=== PATIENT | male | born 1960 | race Two or more races ===

== ENCOUNTER 2021-02-02 18:26 | Inpatient (IN) | payer MEDICARE ==
[~2021-02-02] VITALS: Ht 175.3 cm; Wt 65.3 kg
[~2021-02-02 18:26] MED LIST: DIAZ5TAB MT; GABA800T97 MT
[2021-02-02 19:45] VITALS: BP 145/91
[2021-02-02 20:00] VITALS: BP 145/91
[2021-02-02] MEDS ORDERED: ONDANSETRON HCL 4MG/2ML INJ IV PRN (20:00)
[2021-02-02] MEDS ORDERED: MORPHINE SULFATE 2 MG/ML CPJ (NOT FOR IM USE) IV PRN (20:00)
[2021-02-02] MEDS ORDERED: CLONIDINE 0.1MG TABLET PO PRN (20:00)
[2021-02-02] MEDS ORDERED: DEXTROSE 50% WATER 50ML SYRINGE IV PRN (20:00)
[2021-02-02] MEDS: BLOOD SUGAR DIAGNOSTIC STRIP TEST SCH (21:00)
[2021-02-02] MEDS: INSULIN LISPRO 100 UNITS/ML SUBCUT SCH (21:00)
[2021-02-02] MEDS: AMLODIPINE 5MG TABLET PO SCH (21:00)
[2021-02-02] MEDS ORDERED: LACTULOSE 20G/30ML UDC PO SCH (21:00)
[2021-02-03] MEDS: PANTOPRAZOLE 40MG DR TABLET PO SCH ×2 (05:47→08:45)
[2021-02-03] MEDS: BLOOD SUGAR DIAGNOSTIC STRIP TEST SCH ×4 (05:48→21:00)
[2021-02-03] MEDS: INSULIN LISPRO 100 UNITS/ML SUBCUT SCH ×4 (06:14→21:00)
[2021-02-03 06:45] LABS: BASOPHILS % 0.3 % (0.0-2.0); EOSINOPHILS % 2.8 % (0.0-5.0); HEMOGLOBIN. 12.2 g/dL (14.0-18.0); LYMPHOCYTES % 28.9 % (20.0-50.0); MEAN CORPUSCULAR HEMOGLOBIN 27.5 pg (28.0-32.0); MEAN CORPUSCULAR VOLUME 83.6 fL (80.0-94.0); MEAN PLATELET VOLUME 9.3 fl (7.4-10.4); MONOCYTES % 14.5 % (2.0-8.0); NEUTROPHILS % 53.5 % (40.0-76.0); PLATELET 370 x1000/uL (130-400); RED BLOOD CELL COUNT 4.43 mill/uL (4.7-6.1); RED CELL DISTRIBUTION WIDTH 17.3 % (11.6-14.6)
[2021-02-03 06:51] LABS: CHLORIDE 106 mEq/L (98-107)
[2021-02-03 08:00] VITALS: BP 123/74
[2021-02-03] MEDS: FERROUS SULFATE 325MG TABLET PO SCH ×3 (08:45→17:05)
[2021-02-03] MEDS: AMLODIPINE 5MG TABLET PO SCH ×2 (08:46→22:01)
[2021-02-03] MEDS: ASCORBIC ACID 500 MG TABLET PO SCH (08:46)
[2021-02-03] MEDS: ACETAMINOPHEN 325MG TABLET PO PRN (08:46)
[2021-02-03] MEDS: POTASSIUM CHLORIDE 20MEQ TABLET SR PO SCH ×3 (08:46→19:36)
[2021-02-03] MEDS: CYANOCOBALAMIN 1000MCG/ML VIAL IM SCH (08:47)
[2021-02-03] MEDS ORDERED: HYDROCODONE/ACETAMINOPHEN 5/325MG TABLET PO PRN (10:15)
[2021-02-03] MEDS ORDERED: POTASSIUM CHLORIDE 20MEQ TABLET SR PO NR (17:00)
[2021-02-03 20:00] VITALS: BP 148/88
[2021-02-04 06:27] LABS: BASOPHILS % 0.3 % (0.0-2.0); EOSINOPHILS % 4.2 % (0.0-5.0); LYMPHOCYTES % 21.4 % (20.0-50.0); MEAN CORPUSCULAR HEMOGLOBIN 27.7 pg (28.0-32.0); MEAN CORPUSCULAR VOLUME 83.4 fL (80.0-94.0); MEAN PLATELET VOLUME 9.1 fl (7.4-10.4); MONOCYTES % 14.7 % (2.0-8.0); NEUTROPHILS % 59.4 % (40.0-76.0); PLATELET 413 x1000/uL (130-400); RED BLOOD CELL COUNT 4.68 mill/uL (4.7-6.1); RED CELL DISTRIBUTION WIDTH 17.6 % (11.6-14.6)
[2021-02-04 07:43] LABS: CHLORIDE 103 mEq/L (98-107)
[2021-02-04 07:47] VITALS: BP 146/87
[2021-02-04] MEDS: BLOOD SUGAR DIAGNOSTIC STRIP TEST SCH ×4 (09:00→21:07)
[2021-02-04] MEDS: INSULIN LISPRO 100 UNITS/ML SUBCUT SCH ×4 (09:00→21:40)
[2021-02-04] MEDS: ACETAMINOPHEN 325MG TABLET PO PRN ×4 (09:23→12:56)
[2021-02-04] MEDS: POTASSIUM CHLORIDE 20MEQ TABLET SR PO SCH ×2 (09:23→17:02)
[2021-02-04] MEDS: FERROUS SULFATE 325MG TABLET PO SCH ×3 (09:24→17:01)
[2021-02-04] MEDS: CYANOCOBALAMIN 1000MCG/ML VIAL IM SCH (09:24)
[2021-02-04] MEDS: AMLODIPINE 5MG TABLET PO SCH ×2 (09:24→21:04)
[2021-02-04] MEDS: ASCORBIC ACID 500 MG TABLET PO SCH (09:24)
[2021-02-04] MEDS: LEVOFLOXACIN 500MG TABLET PO SCH (12:19)
[2021-02-04] MEDS: ERGOCALCIFEROL 50000UNITS CAPSULE PO SCH (17:07)
[2021-02-04 18:03] LABS: CLARITY URINE CLEAR (CLEAR); COLOR URINE YELLOW (YELLOW); KETONES URINE NEGATIVE (NEGATIVE); LEUKOCYTE ESTERASE URINE NEGATIVE (NEGATIVE); NITRITE URINE NEGATIVE (NEGATIVE); OCCULT BLOOD URINE NEGATIVE (NEGATIVE); PH URINE 7.5 (4.5-8.0); PROTEIN URINE NEGATIVE (NEGATIVE); SPECIFIC GRAVITY URINE 1.016 (1.005-1.030); UROBILINOGEN URINE 0.2 E.U./dL (0.2-1.0)
[2021-02-04 20:00] VITALS: BP 128/80
[2021-02-04] MEDS: GUAIFENESIN 600MG ER TABLET PO SCH (21:04)
[2021-02-05] MEDS: BLOOD SUGAR DIAGNOSTIC STRIP TEST SCH ×4 (05:47→21:00)
[2021-02-05 06:24] LABS: CHLORIDE 105 mEq/L (98-107)
[2021-02-05 06:50] LABS: HEMATOCRIT. 39.6 % (42.0-52.0); HEMOGLOBIN. 13.4 g/dL (14.0-18.0); MEAN CORPUSCULAR HEMOGLOBIN 28.2 pg (28.0-32.0); MEAN CORPUSCULAR VOLUME 83.3 fL (80.0-94.0); MEAN PLATELET VOLUME 9.1 fl (7.4-10.4); PLATELET 423 x1000/uL (130-400); RED BLOOD CELL COUNT 4.75 mill/uL (4.7-6.1); RED CELL DISTRIBUTION WIDTH 17.5 % (11.6-14.6)
[2021-02-05 07:23] VITALS: BP 116/86
[2021-02-05] MEDS: INSULIN LISPRO 100 UNITS/ML SUBCUT SCH ×4 (07:27→21:00)
[2021-02-05] MEDS: FERROUS SULFATE 325MG TABLET PO SCH ×3 (08:45→16:26)
[2021-02-05] MEDS: ASCORBIC ACID 500 MG TABLET PO SCH (08:45)
[2021-02-05] MEDS: AMLODIPINE 5MG TABLET PO SCH ×2 (08:45→22:12)
[2021-02-05] MEDS: GUAIFENESIN 600MG ER TABLET PO SCH ×2 (08:46→22:11)
[2021-02-05] MEDS: FAMOTIDINE 20MG TABLET PO SCH ×2 (08:46→22:11)
[2021-02-05] MEDS: POTASSIUM CHLORIDE 20MEQ TABLET SR PO SCH ×2 (08:47→16:27)
[2021-02-05] MEDS: HYDROCODONE/ACETAMINOPHEN 10/325MG TABLET PO PRN ×2 (10:00→22:40)
[2021-02-05] MEDS: LEVOFLOXACIN 500MG TABLET PO SCH (10:00)
[2021-02-05 17:34] LABS: PLATELET ESTIMATE INCREASED
[2021-02-05 20:00] VITALS: BP 137/86
[2021-02-06] MEDS: BLOOD SUGAR DIAGNOSTIC STRIP TEST SCH ×4 (06:39→21:27)
[2021-02-06 08:24] VITALS: BP 102/78
[2021-02-06] MEDS: AMLODIPINE 5MG TABLET PO SCH ×2 (08:53→21:27)
[2021-02-06] MEDS: INSULIN LISPRO 100 UNITS/ML SUBCUT SCH ×4 (08:54→21:32)
[2021-02-06] MEDS: FAMOTIDINE 20MG TABLET PO SCH ×2 (09:22→21:22)
[2021-02-06] MEDS: ASCORBIC ACID 500 MG TABLET PO SCH (09:22)
[2021-02-06] MEDS: GUAIFENESIN 600MG ER TABLET PO SCH ×2 (09:22→21:22)
[2021-02-06] MEDS: POTASSIUM CHLORIDE 20MEQ TABLET SR PO SCH ×2 (09:22→17:11)
[2021-02-06] MEDS: FERROUS SULFATE 325MG TABLET PO SCH ×3 (09:22→17:11)
[2021-02-06] MEDS: HYDROCODONE/ACETAMINOPHEN 10/325MG TABLET PO PRN ×3 (09:26→18:25)
[2021-02-06 20:00] VITALS: BP 132/92
[2021-02-07] MEDS: HYDROCODONE/ACETAMINOPHEN 10/325MG TABLET PO PRN ×2 (06:20→13:20)
[2021-02-07] MEDS: BLOOD SUGAR DIAGNOSTIC STRIP TEST SCH ×4 (06:20→20:58)
[2021-02-07 06:29] LABS: HEMATOCRIT. 40.2 % (42.0-52.0); HEMOGLOBIN. 13.4 g/dL (14.0-18.0); MEAN CORPUSCULAR VOLUME 83.8 fL (80.0-94.0); MEAN PLATELET VOLUME 8.7 fl (7.4-10.4); PLATELET 408 x1000/uL (130-400); RED CELL DISTRIBUTION WIDTH 17.7 % (11.6-14.6)
[2021-02-07 06:33] LABS: CHLORIDE 103 mEq/L (98-107)
[2021-02-07 08:27] VITALS: BP 105/70
[2021-02-07] MEDS: FERROUS SULFATE 325MG TABLET PO SCH ×3 (08:27→16:57)
[2021-02-07] MEDS: GUAIFENESIN 600MG ER TABLET PO SCH ×2 (08:27→20:58)
[2021-02-07] MEDS: ASCORBIC ACID 500 MG TABLET PO SCH (08:27)
[2021-02-07] MEDS: POTASSIUM CHLORIDE 20MEQ TABLET SR PO SCH ×2 (08:27→16:57)
[2021-02-07] MEDS: FAMOTIDINE 20MG TABLET PO SCH ×2 (08:27→20:58)
[2021-02-07] MEDS: AMLODIPINE 5MG TABLET PO SCH ×2 (08:28→20:58)
[2021-02-07] MEDS: INSULIN LISPRO 100 UNITS/ML SUBCUT SCH ×4 (08:29→20:58)
[2021-02-07 16:22] LABS: PLATELET ESTIMATE INCREASED
[2021-02-07 20:00] VITALS: BP 117/72
[2021-02-08] MEDS: HYDROCODONE/ACETAMINOPHEN 10/325MG TABLET PO PRN ×2 (06:24→12:20)
[2021-02-08] MEDS: BLOOD SUGAR DIAGNOSTIC STRIP TEST SCH ×4 (06:24→21:14)
[2021-02-08] MEDS: INSULIN LISPRO 100 UNITS/ML SUBCUT SCH ×4 (06:25→21:00)
[2021-02-08 08:01] VITALS: BP 111/76
[2021-02-08] MEDS: AMLODIPINE 5MG TABLET PO SCH ×2 (09:16→21:14)
[2021-02-08] MEDS: GUAIFENESIN 600MG ER TABLET PO SCH ×2 (09:16→21:14)
[2021-02-08] MEDS: FAMOTIDINE 20MG TABLET PO SCH ×2 (09:16→21:14)
[2021-02-08] MEDS: ASCORBIC ACID 500 MG TABLET PO SCH (09:16)
[2021-02-08] MEDS: FERROUS SULFATE 325MG TABLET PO SCH ×3 (09:16→16:58)
[2021-02-08 19:06] LABS: 25-HYDROXY VITAMIN D3 34 ng/mL (.)
[2021-02-08 20:00] VITALS: BP 124/82
[2021-02-09 06:22] LABS: CHLORIDE 102 mEq/L (98-107)
[2021-02-09] MEDS: BLOOD SUGAR DIAGNOSTIC STRIP TEST SCH (07:16)
[2021-02-09] MEDS: INSULIN LISPRO 100 UNITS/ML SUBCUT SCH (07:16)
[2021-02-09 07:44] VITALS: BP 118/86
[2021-02-09] MEDS: GUAIFENESIN 600MG ER TABLET PO SCH ×2 (08:41→21:30)
[2021-02-09] MEDS: HYDROCODONE/ACETAMINOPHEN 10/325MG TABLET PO PRN (08:42)
[2021-02-09] MEDS: AMLODIPINE 5MG TABLET PO SCH ×2 (08:42→21:30)
[2021-02-09] MEDS: ASCORBIC ACID 500 MG TABLET PO SCH (08:42)
[2021-02-09] MEDS: FERROUS SULFATE 325MG TABLET PO SCH ×3 (08:42→16:27)
[2021-02-09] MEDS: FAMOTIDINE 20MG TABLET PO SCH ×2 (08:42→21:31)
[2021-02-09] MEDS ORDERED: ERGOCALCIFEROL 50000UNITS CAPSULE PO SCH (09:00)
[2021-02-09] MEDS ORDERED: HYDROCODONE/ACETAMINOPHEN 10/325MG TABLET PO PRN (09:45)
[2021-02-09 20:00] VITALS: BP 133/86
[2021-02-09] MEDS: ACETAMINOPHEN 325MG TABLET PO PRN (21:30)
[2021-02-10 07:11] VITALS: BP 122/73
[2021-02-10] MEDS: FAMOTIDINE 20MG TABLET PO SCH ×2 (08:13→21:43)
[2021-02-10] MEDS: FERROUS SULFATE 325MG TABLET PO SCH ×3 (08:13→16:54)
[2021-02-10] MEDS: AMLODIPINE 5MG TABLET PO SCH ×2 (08:13→21:43)
[2021-02-10] MEDS: GUAIFENESIN 600MG ER TABLET PO SCH ×2 (08:13→21:42)
[2021-02-10] MEDS: ASCORBIC ACID 500 MG TABLET PO SCH (08:13)
[2021-02-10] MEDS: LACTULOSE 20G/30ML UDC PO SCH ×3 (11:10→16:48)
[2021-02-10 20:00] VITALS: BP_SYST 120; BP_SYST 133; BP_DIAS 73
[2021-02-11 07:08] LABS: BASOPHILS % 0.6 % (0.0-2.0); EOSINOPHILS % 4.1 % (0.0-5.0); HEMATOCRIT. 42.1 % (42.0-52.0); HEMOGLOBIN. 13.7 g/dL (14.0-18.0); MEAN CORPUSCULAR HEMOGLOBIN 27.3 pg (28.0-32.0); MEAN CORPUSCULAR VOLUME 83.9 fL (80.0-94.0); MEAN PLATELET VOLUME 8.9 fl (7.4-10.4); MONOCYTES % 13.2 % (2.0-8.0); NEUTROPHILS % 57.1 % (40.0-76.0); PLATELET 383 x1000/uL (130-400); RED BLOOD CELL COUNT 5.02 mill/uL (4.7-6.1); RED CELL DISTRIBUTION WIDTH 17.3 % (11.6-14.6)
[2021-02-11 07:18] LABS: CHLORIDE 105 mEq/L (98-107)
[2021-02-11 08:25] VITALS: BP 119/73
[2021-02-11] MEDS ORDERED: CYANOCOBALAMIN 1000MCG/ML VIAL IM SCH (09:00)
[2021-02-11] MEDS: FERROUS SULFATE 325MG TABLET PO SCH ×3 (09:46→16:17)
[2021-02-11] MEDS: AMLODIPINE 5MG TABLET PO SCH ×2 (09:46→21:25)
[2021-02-11] MEDS: FAMOTIDINE 20MG TABLET PO SCH ×2 (09:46→21:25)
[2021-02-11] MEDS: ASCORBIC ACID 500 MG TABLET PO SCH (09:46)
[2021-02-11] MEDS: GUAIFENESIN 600MG ER TABLET PO SCH ×2 (09:46→21:25)
[2021-02-11] MEDS ORDERED: HYDR-4009 MT (10:40)
[2021-02-11] MEDS ORDERED: AMLO5TAB88 MT (10:40)
[2021-02-11] MEDS: ERGOCALCIFEROL 50000UNITS CAPSULE PO SCH (16:18)
[2021-02-11 20:00] VITALS: BP 119/77
[2021-02-12 07:38] VITALS: BP 127/82
[2021-02-12] MEDS: AMLODIPINE 5MG TABLET PO SCH (09:41)
[2021-02-12] MEDS: FERROUS SULFATE 325MG TABLET PO SCH (09:41)
[2021-02-12] MEDS: FAMOTIDINE 20MG TABLET PO SCH (09:42)
[2021-02-12] MEDS: GUAIFENESIN 600MG ER TABLET PO SCH (09:42)
[2021-02-12] MEDS: ASCORBIC ACID 500 MG TABLET PO SCH (09:44)
[2021-02-12 10:25] VITALS: BP 127/82
== END 2021-02-12 13:35 | disposition home health service (06) | DRG 551 ==
PROVIDERS: ADMIT Physical Medicine & Rehabilitation Spinal Cord Injury Medicine; ATTEND Internal Medicine Nephrology
DX: M48.02 Spinal stenosis, cervical region (principal); G82.50 Quadriplegia, unspecified; E87.1 Hypo-osmolality and hyponatremia; M48.54XA Collapsed vertebra, not elsewhere classified, thoracic region, initial encounter for fracture; E44.0 Moderate protein-calorie malnutrition; F32.1 Major depressive disorder, single episode, moderate; G99.2 Myelopathy in diseases classified elsewhere; C61 Malignant neoplasm of prostate; D50.9 Iron deficiency anemia, unspecified; E03.9 Hypothyroidism, unspecified; E53.8 Deficiency of other specified B group vitamins; E78.5 Hyperlipidemia, unspecified; E87.6 Hypokalemia; E87.8 Other disorders of electrolyte and fluid balance, not elsewhere classified; F12.90 Cannabis use, unspecified, uncomplicated; I10 Essential (primary) hypertension; K59.00 Constipation, unspecified; M48.061 Spinal stenosis, lumbar region without neurogenic claudication; R13.10 Dysphagia, unspecified; R29.6 Repeated falls; Z87.891 Personal history of nicotine dependence; E55.9 Vitamin D deficiency, unspecified; F41.9 Anxiety disorder, unspecified; J44.9 Chronic obstructive pulmonary disease, unspecified; M51.36 Other intervertebral disc degeneration, lumbar region; Z77.22 Contact with and (suspected) exposure to environmental tobacco smoke (acute) (chronic); G89.29 Other chronic pain; R53.81 Other malaise; Z68.21 Body mass index [BMI] 21.0-21.9, adult
CPT/HCPCS: 36415; 80048; 80053; 81003; 82306; 82962; 84134; 84145; 85025; 92610; 93970; 97110; 97116; 97162; 97166; 97530; 97535; J1815; J2270; J3420; L0172

== ENCOUNTER → 2021-04-15 | Outpatient (CLI) | payer MEDICARE, MEDICAID ==
[~2021-04-15] MED LIST changes: +AMLO5TAB88 MT; +HYDR-4009 MT
== END | disposition home or self-care (01) ==
LOC: RAD 12:11
PROVIDERS: ATTEND Neurological Surgery
DX: M47.812 Spondylosis without myelopathy or radiculopathy, cervical region (principal); M25.78 Osteophyte, vertebrae; M50.31 Other cervical disc degeneration, high cervical region; Z98.1 Arthrodesis status
CPT/HCPCS: 72052